=== PATIENT | female | born 1930 | race African-American/Black ===

== ENCOUNTER 2016-11-10 12:32 | Inpatient (IN) | payer MEDICARE ==
[~2016-11-10] VITALS: Ht 162.6 cm; Wt 68.9 kg
[~2016-11-10 12:32] MED LIST: ADALAT; ALDACTONE25 M1 PO; ALPRAZOLAM1 M3 PO; ASPIRIN81 M4 PO; ATENOLOL25 MG PO; ATIVAN0.5 M1 PO; BENICAR HCT 12.1 TAB PO; BENICAR20 MG; BUSPAR5 MG PO; BUSPIRONE5 M1 PO; CATAPRES-T0.2 MG/21 TD; CLONIDINE HCL0.3 M1 PO; CLONIDINE0.1 M1; CLONIDINE0.1 M1 PO; CLONIDINE0.3 MG PO; DIAZEPAM5 M1; DIOVAN160 M1 PO; FAMOTIDINE20 M1 PO; FIORICET 325 MG1 TA1 PO; FLORICET PO; HYDRALAZINE PO; IMDUR60 M1 PO; ISOTRATE ER60 MG PO; KLOR-CON M2020 ME1 PO; LIPITOR10 MG PO; LOPRESSOR50 M1 PO; METFORMIN500 MG PO; METOPROLOL50 MG PO; METRONIDAZOLE500 M1 PO; MINOXIDIL2.5 MG PO; MOTRIN400 M1; NITROSTAT0.4 M1 SL; OMEPRAZOLE D/R20 M1 PO; OMEPRAZOLE20 M1 PO; PLAVIX75 MG PO; TAGAMET PO; TETRACYCLINE PO; VICODIN 5/500 M1 TAB PO
[2016-11-10 12:35] VITALS: BP 148/63
[2016-11-10] MEDS ORDERED: ASPIRIN 81 MG TAB.CHEW PO ONE (12:45)
--- NOTE | 2016-11-10 13:37 | NUR ---
PATIENT MOVED TO BED 2
--- NOTE | 2016-11-10 14:30 | NUR ---
PATIENT PRESENTS TO ED WITH C/O LEFT SIDE FACE & LEFT ARM NUMBNESS AND CHEST PRESSURE PT STATES THAT SHE HAS INTERMITTENT CHEST PRESSURE AND IT GETS WORST THIS MORNING. NEURO ASSESSMENT COMPELTED. BRISK PUPIL PERRL. NO FACIAL, ARM, OR STRENGTH ASYMMETRY. DENIES N/V/D; SKIN IS PINK/WARM/DRY; AAO X 4. LUNGS CLEAR BL; HR EVEN AND REGULAR; ACTIVE BOWEL SOUNDS IN ALL FOUR QUADRANTS. PATIENT STATES PAIN OF 7/10 AT THIS TIME; VSS; SR ON MONITOR. AFEBRILE. PATIENT POSITIONED FOR COMFORT; HOB ELEVATED; BEDRAILS UP X2; BED DOWN. ER MD MADE AWARE OF PT STATUS.
--- NOTE | 2016-11-10 14:35 | NUR ---
DR. WEST EVALUATES PT AT BEDSIDE.
--- NOTE | 2016-11-10 16:30 | NUR ---
PT ON UNIT. NO S/S OF ACUTE DISTRESS. PT DENIES PAIN. IV SITE PATENT AND INTACT. SKIN INTACT. CALL LIGHT WITHIN REACH. SAFETY MEASURES ENSURED. FALL PRECAUTIONS INITIATED.
--- NOTE | 2016-11-10 16:45 | NUR ---
Patient will be admitted to care of DR Warner. Admited to TELE. Will go to room 107A Belongings list completed. Report given to Ankit.
[2016-11-10] MEDS: NACL 0.9% 1,000 ML IV SCH (16:53)
[2016-11-10] MEDS ORDERED: MORPHINE SULFATE 2 MG/ML SYR IVP PRN (16:55)
[2016-11-10] MEDS ORDERED: ONDANSETRON 4 MG/2 ML VIAL IVP PRN (16:55)
[2016-11-10] MEDS ORDERED: NITROGLYCERIN 0.4 MG TAB SL PRN (17:25)
[2016-11-10] MEDS ORDERED: INSULIN ASPART SLIDING SCALE 100 UNITS/ML VIAL SUBQ PRN (17:35)
[2016-11-10] MEDS ORDERED: DEXTROSE 50% 50 ML SYR IVP PRN (17:35)
[2016-11-10 17:37] VITALS: BP 175/82
[2016-11-10] MEDS ORDERED: IMDUR60 M1 PO (18:46)
[2016-11-10] MEDS ORDERED: BUSPAR5 MG PO (18:46)
[2016-11-10] MEDS ORDERED: GABAPENTIN100 M1 PO (18:46)
[2016-11-10] MEDS ORDERED: CLONIDINE0.3 MG PO (18:46)
[2016-11-10] MEDS ORDERED: hydrALAZINE 20 MG/ML VIAL IVP ONE (18:50)
--- NOTE | 2016-11-10 19:18 | NUR ---
RECEIVED REPORT FROM CONNOR SIERRA, AT BEDSIDE. INITIAL ASSESSMENT AND BODY CHECK DONE. PATIENT AAO X 4, ABLE TO FOLLOW COMMAND AND MAKE NEEDS KNOWN AND AMBULATORY WITH CANE. PATIENT CURRENTLY LYING DOWN ON THE BED AND WATCHING TV. NO S/S OF DISTRESS OR SOB NOTED. SKIN WARM/DRY TO TOUCH WITH NORMAL COLOR AND INTACT. PATIENT DENIED OF ANY PAIN/DISCOMFORT AT THIS TIME. DISCUSSED PLAN OF CARE, PAIN MANAGEMENT AND MEDICATION REGIMEN WITH PATIENT AND PATIENT VERBALIZED UNDERSTANDING. PLACED PATIENT ON SAFETY/FALL PRECAUTIONS AND WILL CONTINUE TO MONITOR. CALL LIGHT LEFT WITHIN REACH.
--- NOTE | 2016-11-10 19:20 | NUR ---
ENDORSED PLAN OF CARE TO NIGHT RN. PT REMAINS IN STABLE CONDITION.
[2016-11-10 20:00] VITALS: BP 147/74
--- NOTE | 2016-11-10 20:00 | NUR ---
SPOKE TO DR. OH OVER THE PHONE REGARDING PATIENT'S HOME MEDICATIONS. NEW ORDERS GIVEN: CONTINUE ALL HOME MEDICATIONS, NOTED AND CARRIED-OUT.
[2016-11-10] MEDS: BLOOD GLUCOSE MONITORING 1 DEV DEV FS SCH (20:42)
[2016-11-10] MEDS: hydrALAZINE 25 MG TAB PO SCH (20:58)
[2016-11-10] MEDS: SPIRONOLACTONE 25 MG TAB PO SCH (20:58)
[2016-11-10] MEDS: ISOSORBIDE MONONITRATE 30 MG TABER PO SCH ×2 (20:59→21:00)
[2016-11-10] MEDS: busPIRone 5 MG TAB PO SCH (20:59)
[2016-11-10] MEDS ORDERED: BLOOD GLUCOSE MONITORING 1 DEV DEV FS SCH (21:00)
--- NOTE | 2016-11-10 21:00 | NUR ---
NOTED BLOOD SUGAR 59 MG/DL. PATIENT IS ASYMPTOMATIC OF HYPOGLYCEMIA, NO CHANGE IN LOC. ADMINISTERED D50 % PRN PER PROTOCOL AND PATIENT TOLERATED WELL. ALSO, GAVE 1 PAIR OF SANDWICH AND 2 BOXES OF APPLE JUICE. WILL CONTINUE TO MONITOR.
--- NOTE | 2016-11-10 21:50 | NUR ---
ADMINISTERED DUE MEDICATIONS MD'S ORDERED WITH EDUCATION GIVEN. PATIENT TOLERATED WELL. BLOOD SUGAR WAS 111 MG/DL. NO CHANGE IN CONDITION NOTED. KEPT PATIENT IN COMFORTABLE POSITION/WARM AND WILL CONTINUE TO MONITOR.
[2016-11-11] VITALS: BP 135/72
--- NOTE | 2016-11-11 00:45 | NUR ---
PATIENT IS RESTING COMFORTABLY IN BED WITH STABLE V/S. NO ANY COMPLAINT MADE. WILL CONTINUE TO MONITOR.
[2016-11-11] MEDS: ZOLPIDEM 5 MG TAB PO PRN (01:21)
--- NOTE | 2016-11-11 01:50 | NUR ---
PATIENT WAS CALLED AND REQUESTED MEDICATION FOR SLEEPING. ADMINISTERED AMBIEN PRN PER MD'S ORDER. WILL CONTINUE TO MONITOR FOR EFFECTIVENESS.
[2016-11-11] MEDS: NACL 0.9% 1,000 ML IV SCH (01:59)
[2016-11-11 03:53] VITALS: BP 148/79
--- NOTE | 2016-11-11 04:27 | NUR ---
PATIENT ASLEEP QUIETLY IN BED WITH STABLE CONDITION. WILL CONTINUE TO MONITOR.
[2016-11-11] MEDS: BLOOD GLUCOSE MONITORING 1 DEV DEV FS SCH ×4 (05:28→20:26)
--- NOTE | 2016-11-11 05:29 | NUR ---
BLOOD SUGAR WAS 89 MG/DL AND NO INSULIN COVERAGE REQUIRED. GAVE 1 CUP OF PRUNE JUICE TO HELP PROMOTE BOWL MOVEMENT PER PATIENT REQUEST.
--- NOTE | 2016-11-11 07:20 | NUR ---
PATIENT RESTED WELL THROUGHOUT THE SHIFT AND REMAINED IN STABLE CONDITION WITHOUT S/S OF DISTRESS NOTED. ENDORSED PLAN OF CARE TO CONNOR BERMUDEZ, AT BEDSIDE.
--- NOTE | 2016-11-11 07:30 | NUR ---
REPORT RECEIVED AT BEDSIDE FROM CONNOR BUCK . PATIENT IN BED, AWAKE,ALERT ,ORIENTED . DENIES CHEST PAIN AT THIS TIME. WITH IV CATH , INTACT , SHE DOESN'T WANT IV FLUIDS ( DR BARNES WILL BE NOTIFIED.) . SKIN INTACT. PATIENT CONTINENT B/B , REFUSED BEDSIDE COMMODE. USING CANE WHEN WALKS. PLAN OF CARE DISCUSSED WITH HER , SHE VERBALIZED UNDERSTANDING. WILL CONTINUE MONITORING.
[2016-11-11 08:00] VITALS: BP 158/80
--- NOTE | 2016-11-11 08:25 | NUR ---
PATIENT HAS NOSE BLEEDING ( SMALL) , DR OH WAS NOTIFIED , AND SHE WILL SEE HER.
[2016-11-11] MEDS: ATORVASTATIN 20 MG TAB PO SCH (08:44)
[2016-11-11] MEDS: ASPIRIN 81 MG TAB.CHEW PO SCH (08:44)
[2016-11-11] MEDS: cloNIDine 0.1 MG TAB PO SCH ×3 (08:45→17:00)
[2016-11-11] MEDS: ISOSORBIDE MONONITRATE 30 MG TABER PO SCH (08:46)
[2016-11-11] MEDS: hydrALAZINE 25 MG TAB PO SCH ×2 (08:46→20:27)
[2016-11-11] MEDS: SPIRONOLACTONE 25 MG TAB PO SCH ×2 (08:47→20:26)
[2016-11-11] MEDS: busPIRone 5 MG TAB PO SCH ×2 (08:47→20:27)
[2016-11-11] MEDS ORDERED: guaiFENesin DM 200/20 MG-10 ML 10 ML UDC PO PRN (09:25)
[2016-11-11 12:00] VITALS: BP 104/67
[2016-11-11 16:00] VITALS: BP 107/59
[2016-11-11] MEDS: ACETAMINOPHEN 325 MG TAB PO PRN ×2 (16:15→22:13)
--- NOTE | 2016-11-11 19:20 | NUR ---
REPORT GIVEN AT BEDSIDE TO CONNOR SMITH FOR CONTINUITY OF CARE.
--- NOTE | 2016-11-11 19:29 | NUR ---
RECEIVED FROM AM RN IN BED TALKING ON THE PHONE. ABLE TO VERBALIZE WELL. NO SOB. NO ANXIETY AND NO COMPLAINTS OF ANY PAIN AT THIS TIME. GOOD AFFECT. SMILING. TELEMETRY MONITORING. CARE PLANS FOR THE NIGHT DISCUSSED WITH HER AND CALL LIGHT WITH IN REACH. A/O X 4. LEFT AC IVF SITE INTACT. PT. REFUSES TO HAVE ANY IVF FLUID. "I DRINK A LOT OF FLUIDS" AM RN AWARE OF IT.
[2016-11-11 20:42] VITALS: BP 125/70
--- NOTE | 2016-11-11 21:43 | NUR ---
BLOOD SUGAR CHECKED FOR 2100 PER FINGERSTICK 82 MG/DL. GAVE CRANBERRY JUICE AND DEBBIE CRACKERS. AWAKE, ALERT AND GOOD AFFECT. PT. AT THIS TIME STILL WATCHING TV AND VERY MUCH AWAKE. "WAITING FOR [place] BALL TO FALL" TELEMETRY MONITORING. CALL LIGHT WITH IN REACH.
--- NOTE | 2016-11-11 22:16 | NUR ---
COMPLAINED OF LOWER LEGS PAINFUL. PT. MASSAGING IT. ABLE TO VERBALIZE WELL. MEDICATED WITH TYLENOL REQUESTED.
[2016-11-12] MEDS: ZOLPIDEM 5 MG TAB PO PRN (00:51)
--- NOTE | 2016-11-12 00:52 | NUR ---
AWAKE AT THIS TIME AND REQUESTING FOR SLEEPING PILL. STATED THAT SHE CAN NOT SLEEP BECAUSE OTHER PT,S ARE NOISY AND THAT SHE USES IT AT HOME. MEDICATED WITH AMBIEN REQUESTED.
--- NOTE | 2016-11-12 01:00 | NUR ---
PT. FINALLY ASLEEP. NO RESTLESSNESS NOTED AND CALL LIGHT WITH IN REACH. TELEMETRY MONITORING
[2016-11-12 01:47] VITALS: BP 145/74
[2016-11-12 04:17] VITALS: BP 143/83
[2016-11-12] MEDS: NACL 0.9% 1,000 ML IV SCH (05:17)
[2016-11-12] MEDS: BLOOD GLUCOSE MONITORING 1 DEV DEV FS SCH (05:42)
--- NOTE | 2016-11-12 06:19 | NUR ---
AWAKE AT THIS TIME AND EATING SNACK. GOES BRP BY HERSELF. DOES NOT USE CALL LIGHT. AMBULATES WELL WITH CANE. A/O X 4.
--- NOTE | 2016-11-12 07:31 | NUR ---
ENDORSED TO THE NEXT RN FOR CONTINUITY OF CARE. AWAKE AND ALERT. NO COMPLAINTS DONE.
--- NOTE | 2016-11-12 07:32 | NUR ---
RECEIVED REPORT FROM [employer]ALE[employer] SUPERVISOR NURSE. PT IS AAOX4, DENIES PAIN/DISCOMFORT AT THIS TIME. SKIN IS DRY AND INTACT. IV IS FLOWING AND PATENT. PT IS ON ROOM AIR, VITALS STABLE. CALL LIGHT WITHIN REACH. WILL CONTINUE TO MONITOR.
[2016-11-12 08:00] VITALS: BP 137/81
[2016-11-12 08:41] VITALS: BP 137/81
[2016-11-12] MEDS: cloNIDine 0.1 MG TAB PO SCH (08:41)
[2016-11-12] MEDS: SPIRONOLACTONE 25 MG TAB PO SCH (08:41)
[2016-11-12] MEDS: ATORVASTATIN 20 MG TAB PO SCH (08:41)
[2016-11-12] MEDS: hydrALAZINE 25 MG TAB PO SCH (08:42)
[2016-11-12] MEDS: ASPIRIN 81 MG TAB.CHEW PO SCH (08:42)
[2016-11-12] MEDS: busPIRone 5 MG TAB PO SCH (08:42)
[2016-11-12] MEDS: ISOSORBIDE MONONITRATE 30 MG TABER PO SCH (08:42)
--- NOTE | 2016-11-12 08:44 | NUR ---
PT VEE MEDS WELL.
--- NOTE | 2016-11-12 10:38 | NUR ---
ALL NEEDS MET AT THIS TIME.
[2016-11-12] MEDS ORDERED: MAGNESIUM OXIDE 400 MG TAB PO SCH (11:00)
--- NOTE | 2016-11-12 11:40 | NUR ---
PT REFUSED VACCINES.
--- NOTE | 2016-11-12 11:40 | NUR ---
D/C ORDER IN PER EXPLAINED DISCHARGE INSTRUCTIONS. PT VERBALIZED UNDERSTANDING. PRESCRIPTIONS IN PT'S POSSESSION. IV AND JAVA LEAD ARCHITECT REMOVED. WHEELED PT OUT IN STABLE CONDITION. PT WAS ACCOMPANIED PT FRIEND.
--- NOTE | 2016-11-12 13:19 | NUR ---
PATIENT HAS BEEN SCREENED AND CATEGORIZED HIGH NUTRITION RISK. PATIENT WILL BE SEEN WITHIN 1-2 DAYS OF ADMISSION. 11/11/16 - 11/12/16 IRAJ MUNIZ; VIELKA, RD
--- NOTE | 2016-11-15 15:09 | NUR ---
CM NOTE RETRO REVIEW FAXED TO [facility] / FAX# [phone]
== END 2016-11-12 11:40 | disposition home or self-care (01) | DRG 391 ==
LOC: MED 12:32 → MTU 16:57
PROVIDERS: ADMIT Family Medicine; ATTEND Family Medicine
DX: K21.9 Gastro-esophageal reflux disease without esophagitis (principal); I50.43 Acute on chronic combined systolic (congestive) and diastolic (congestive) heart failure; D68.69 Other thrombophilia; F41.9 Anxiety disorder, unspecified; E11.40 Type 2 diabetes mellitus with diabetic neuropathy, unspecified; E11.65 Type 2 diabetes mellitus with hyperglycemia; E11.51 Type 2 diabetes mellitus with diabetic peripheral angiopathy without gangrene; E78.5 Hyperlipidemia, unspecified; E89.0 Postprocedural hypothyroidism; I11.0 Hypertensive heart disease with heart failure; J84.10 Pulmonary fibrosis, unspecified; R19.00 Intra-abdominal and pelvic swelling, mass and lump, unspecified site; Z60.2 Problems related to living alone; Z28.89 Immunization not carried out for other reason; Z90.710 Acquired absence of both cervix and uterus; Z90.49 Acquired absence of other specified parts of digestive tract; Z90.11 Acquired absence of right breast and nipple; Z98.890 Other specified postprocedural states; Z88.8 Allergy status to other drugs, medicaments and biological substances; Z88.0 Allergy status to penicillin; Z79.899 Other long term (current) drug therapy; Z85.3 Personal history of malignant neoplasm of breast; Z86.73 Personal history of transient ischemic attack (TIA), and cerebral infarction without residual deficits

== ENCOUNTER 2018-01-07 08:42 | Emergency (ER) | payer MEDICARE ==
[~2018-01-07] VITALS: Ht 157.5 cm; Wt 70.0 kg
[~2018-01-07 08:42] MED LIST changes: -ADALAT; -ALDACTONE25 M1 PO; -ALPRAZOLAM1 M3 PO; -ASPIRIN81 M4 PO; -ATENOLOL25 MG PO; -ATIVAN0.5 M1 PO; +ATOR10TA PO; -BENICAR HCT 12.1 TAB PO; -BENICAR20 MG; +BUS5 PO; -BUSPAR5 MG PO; -BUSPIRONE5 M1 PO; -CATAPRES-T0.2 MG/21 TD; +CLON0.3T41 PO; -CLONIDINE HCL0.3 M1 PO; -CLONIDINE0.1 M1; -CLONIDINE0.1 M1 PO; -CLONIDINE0.3 MG PO; -DIAZEPAM5 M1; -DIOVAN160 M1 PO; -FAMOTIDINE20 M1 PO; -FIORICET 325 MG1 TA1 PO; -FLORICET PO; +GABA-636 PO; -HYDRALAZINE PO; -IMDUR60 M1 PO; +ISOS60TE PO; -ISOTRATE ER60 MG PO; -KLOR-CON M2020 ME1 PO; -LIPITOR10 MG PO; -LOPRESSOR50 M1 PO; -METFORMIN500 MG PO; -METOPROLOL50 MG PO; -METRONIDAZOLE500 M1 PO; -MINOXIDIL2.5 MG PO; -MOTRIN400 M1; -NITROSTAT0.4 M1 SL; -OMEPRAZOLE D/R20 M1 PO; -OMEPRAZOLE20 M1 PO; -PLAVIX75 MG PO; +SPIR25TA PO; -TAGAMET PO; -TETRACYCLINE PO; -VICODIN 5/500 M1 TAB PO; +[UNRECOGNIZED DRUG - CODE] PO
[2018-01-07 08:44] VITALS: BP 190/86
--- NOTE | 2018-01-07 08:53 | NUR ---
PT WHEEL CHAIR ASSISTED TO BED 2
[2018-01-07 09:31] LABS: BASOPHILS # (AUTO) 0.2 K/uL (0.00-0.22); BASOPHILS % (AUTO) 2.5 % (0.0-2.0); EOSINOPHILS # (AUTO) 0.3 K/uL (0-0.4); EOSINOPHILS % (AUTO) 4.3 % (0.0-4.0); HEMATOCRIT 46.7 % (36-48); LYMPHOCYTES # (AUTO) 1.1 K/uL (2.5-16.5); LYMPHOCYTES % (AUTO) 16.9 % (20.5-51.1); MEAN CORPUSCULAR HEMOGLOBIN 29 pg (27-31); MEAN CORPUSCULAR HGB CONC 32 g/dL (33-37); MEAN CORPUSCULAR VOLUME 89 fL (80-94); MONOCYTES # (AUTO) 0.9 K/uL (0.8-1.0); MONOCYTES % (AUTO) 14.3 % (1.7-9.3); NEUTROPHILS # (AUTO) 3.8 K/uL (1.8-7.7); PLATELET COUNT (AUTO) 136 K/uL (140-450); RED BLOOD CELL COUNT(AUTO) 5.24 MIL/uL (4.20-5.40); RED CELL DISTRIBUTION WIDTH 13.3 % (11.6-13.7); WHITE BLOOD COUNT (AUTO) 6.3 K/uL (4.8-10.8)
[2018-01-07 09:49] LABS: ALBUMIN 3.7 g/dL (3.4-5.0); ANION GAP 10.9 (8-16); ASPARTATE AMINOTRANSFERASE 26 U/L (15-37); CHLORIDE 109 mmol/L (98-107); CREATININE 1.2 mg/dL (0.6-1.3); GLUCOSE 102 mg/dL (74-106); POTASSIUM 3.9 mmol/L (3.5-5.1); SODIUM SERUM 143 mmol/L (136-145); TOTAL BILIRUBIN 0.4 mg/dL (0.0-1.0); UREA NITROGEN, BLOOD 22 mg/dL (7-18)
[2018-01-07 09:50] LABS: PROTHROMBIN TIME 10.6 secs (10.8-13.4)
--- NOTE | 2018-01-07 09:50 | NUR ---
XRAY AT BEDSIDE
[2018-01-07 12:55] VITALS: BP 160/65
--- NOTE | 2018-01-07 12:57 | NUR ---
pt tolerated care well stated understood all information given upon d/c home family at bedside presciptions given as well as explained no iv upon d/c home.
== END 2018-01-07 12:57 | disposition home or self-care (01) ==
LOC: MED 08:42
DX: B34.9 Viral infection, unspecified (principal); Z86.73 Personal history of transient ischemic attack (TIA), and cerebral infarction without residual deficits; E11.9 Type 2 diabetes mellitus without complications; I10 Essential (primary) hypertension; K21.9 Gastro-esophageal reflux disease without esophagitis; Z90.710 Acquired absence of both cervix and uterus; Z90.89 Acquired absence of other organs; Z79.899 Other long term (current) drug therapy; Z88.0 Allergy status to penicillin; Z88.5 Allergy status to narcotic agent
CPT/HCPCS: 36415; 36600; 71045; 80053; 82803; 82948; 83605; 83880; 84484; 85025; 85610; 85730; 87040; 87804; 93005; 99285